=== PATIENT | female | born 1980 | race Caucasian/White ===

== ENCOUNTER 2019-12-08 10:23 | Observation (INO) | payer MEDICAID, SELFPAY ==
[~2019-12-08] VITALS: Ht 160 cm; Wt 90.7 kg
[~2019-12-08 10:23] MED LIST: ACET-2619 PO; FERR325E14 PO; PREN-385 PO
[2019-12-08 11:19] VITALS: BP 127/65
--- NOTE | 2019-12-08 15:04 | NUR ---
PATIENT HAS BEEN SCREENED AND CATEGORIZED LOW NUTRITION RISK. PATIENT WILL BE SEEN WITHIN 7 DAYS OF ADMISSION. 12/14/[address]
== END 2019-12-08 14:25 | disposition home or self-care (01) ==
LOC: MLD 10:23
PROVIDERS: ADMIT Obstetrics & Gynecology; ATTEND Obstetrics & Gynecology
DX: O62.9 Abnormality of forces of labor, unspecified (principal); Z20.828 Contact with and (suspected) exposure to other viral communicable diseases; O09.523 Supervision of elderly multigravida, third trimester; Z3A.38 38 weeks gestation of pregnancy
CPT/HCPCS: 59025; 76805; 81000; 87426; G0378; Q0092

== ENCOUNTER 2019-12-11 17:14 | Inpatient (IN) | payer MEDICAID, SELFPAY ==
[~2019-12-11] VITALS: Ht 162.6 cm; Wt 90.7 kg
[~2019-12-11 17:14] MED LIST changes: -ACET-2619 PO; -FERR325E14 PO
[2019-12-11] MEDS ORDERED: CARBOPROST 250 MCG/ML AMP IM PRN (18:10)
[2019-12-11] MEDS ORDERED: LACTATED RINGERS 1,000 ML IV SCH (18:10)
[2019-12-11] MEDS ORDERED: METHYLERGONOVINE 0.2 MG/ML AMP IM PRN (18:10)
[2019-12-11] MEDS ORDERED: MISOPROSTOL 25 MCG TAB VG SCH (18:10)
[2019-12-11] MEDS ORDERED: PROMETHAZINE 25 MG/ML VIAL IVP PRN (18:10)
[2019-12-11] MEDS ORDERED: OXYTOCIN 10 UNITS/ML VIAL IM SCH (18:10)
[2019-12-11] MEDS ORDERED: AMPICILLIN 2,000 MG VIAL ONE (18:38)
[2019-12-11 18:42] LABS: BASOPHILS % (AUTO) 0.5 % (0.0-2.0); EOSINOPHILS % (AUTO) 0.5 % (0.0-4.0); HEMATOCRIT 37.5 % (36-48); HEMOGLOBIN 13.3 g/dL (12.0-16.0); LYMPHOCYTES # (AUTO) 1.7 K/uL (2.5-16.5); LYMPHOCYTES % (AUTO) 21.1 % (20.5-51.1); MEAN CORPUSCULAR HEMOGLOBIN 35 pg (27-31); MEAN CORPUSCULAR HGB CONC 36 g/dL (33-37); MEAN CORPUSCULAR VOLUME 98.8 fL (80-94); MONOCYTES # (AUTO) 0.6 K/uL (0.8-1.0); MONOCYTES % (AUTO) 7.8 % (1.7-9.3); NEUTROPHILS # (AUTO) 5.7 K/uL (1.8-7.7); NEUTROPHILS % (AUTO) 70.1 % (42.2-75.2); PLATELET COUNT (AUTO) 204 K/uL (140-450); RED CELL DISTRIBUTION WIDTH 14.1 % (11.6-13.7); WHITE BLOOD COUNT (AUTO) 8.1 K/uL (4.8-10.8)
[2019-12-11 18:43] LABS: APPEARANCE,URINE HAZY (CLEAR); BILIRUBIN,URINE NEGATIVE (NEGATIVE); BLOOD, URINE NEGATIVE (NEGATIVE); COLOR,URINE YELLOW (YELLOW); LEUKOCYTE ESTERASE ,URINE NEGATIVE (NEGATIVE); NITRITE, URINE NEGATIVE (NEGATIVE); PH,URINE 5.5 (5.0-9.0); UGLUCOSE NEGATIVE (NEGATIVE)
[2019-12-11 18:57] LABS: ALBUMIN 2.8 g/dL (3.4-5.0); ANION GAP 16.5 (8-16); CARBON DIOXIDE 20.2 mmol/L (21-32); CREATININE 0.6 mg/dL (0.6-1.3); POTASSIUM 3.7 mmol/L (3.5-5.1); TOTAL BILIRUBIN 0.4 mg/dL (0.0-1.0)
[2019-12-11] MEDS ORDERED: AMPICILLIN 2,000 MG in NACL 0.9% MINI-BAG PLUS 100 ML IV SCH (19:00)
[2019-12-11] MEDS ORDERED: AMPICILLIN 1,000 MG VIAL ONE (23:00)
[2019-12-11] MEDS: AMPICILLIN 1,000 MG in NACL 0.9% MINI-BAG PLUS 50 ML IV SCH (23:04)
[2019-12-12] MEDS ORDERED: ROPIVACAINE 0.2%/NS PREMIX 200 ML EPI ONE (01:39)
[2019-12-12] MEDS ORDERED: AMPICILLIN 1,000 MG VIAL ONE ×3 (03:03→11:35)
[2019-12-12] MEDS: AMPICILLIN 1,000 MG in NACL 0.9% MINI-BAG PLUS 50 ML IV SCH ×3 (03:08→11:48)
[2019-12-12] MEDS ORDERED: OXYTOCIN 20 UNITS/LR PREMIX 1,000 ML IV ONE (04:36)
[2019-12-12] MEDS ORDERED: LIDOCAINE 1% 500 MG/50 ML VIAL ONE (12:26)
[2019-12-12] MEDS ORDERED: ACETAMINOPHEN 325 MG TAB PO PRN (14:15)
[2019-12-12] MEDS ORDERED: MEASLES, MUMPS, AND RUBELLA 1 VIAL SQVAC PRN (14:15)
[2019-12-12] MEDS ORDERED: OXYTOCIN 20 UNITS in LACTATED RINGERS 1,000 ML IV SCH (14:15)
[2019-12-12] MEDS: IBUPROFEN 600 MG TAB PO PRN (17:37)
[2019-12-13] MEDS: IBUPROFEN 600 MG TAB PO PRN ×2 (01:10→11:42)
[2019-12-13] MEDS ORDERED: FLU VACCINE QS2020-21 0.5 ML SYR IMVAC PRN (04:50)
--- NOTE | 2019-12-13 06:25 | NUR ---
PATIENT HAS BEEN SCREENED AND CATEGORIZED LOW NUTRITION RISK. PATIENT WILL BE SEEN WITHIN 7 DAYS OF ADMISSION. 12/18/19 DIMPLE MACDONALD MS, RDN
[2019-12-13 08:06] LABS: BASOPHILS % (AUTO) 0.3 % (0.0-2.0); EOSINOPHILS # (AUTO) 0.1 K/uL (0-0.4); EOSINOPHILS % (AUTO) 0.6 % (0.0-4.0); HEMATOCRIT 34.9 % (36-48); HEMOGLOBIN 12.2 g/dL (12.0-16.0); LYMPHOCYTES # (AUTO) 2.1 K/uL (2.5-16.5); LYMPHOCYTES % (AUTO) 20.5 % (20.5-51.1); MEAN CORPUSCULAR HEMOGLOBIN 35 pg (27-31); MEAN CORPUSCULAR HGB CONC 35 g/dL (33-37); MEAN CORPUSCULAR VOLUME 100.1 fL (80-94); MONOCYTES # (AUTO) 0.9 K/uL (0.8-1.0); MONOCYTES % (AUTO) 8.9 % (1.7-9.3); NEUTROPHILS # (AUTO) 7.1 K/uL (1.8-7.7); NEUTROPHILS % (AUTO) 69.7 % (42.2-75.2); PLATELET COUNT (AUTO) 175 K/uL (140-450); RED BLOOD CELL COUNT(AUTO) 3.48 MIL/uL (4.20-5.40); RED CELL DISTRIBUTION WIDTH 14.2 % (11.6-13.7); WHITE BLOOD COUNT (AUTO) 10.2 K/uL (4.8-10.8)
[2019-12-13] MEDS: bisacodyL 5 MG TABEC PO PRN (11:43)
[2019-12-13] MEDS: DOCUSATE SODIUM 100 MG GELCAP PO PRN (11:43)
[2019-12-14] MEDS: IBUPROFEN 600 MG TAB PO PRN (00:26)
[2019-12-14] MEDS: DOCUSATE SODIUM 100 MG GELCAP PO PRN (08:44)
[2019-12-14] MEDS: bisacodyL 5 MG TABEC PO PRN (08:44)
[2019-12-14] MEDS ORDERED: ACET-9800 PO (10:53)
[2019-12-14] MEDS ORDERED: FERR-18 PO (10:54)
== END 2019-12-14 15:00 | disposition home or self-care (01) | DRG 560 ==
LOC: MLD 17:14 → MFCC 12-12 15:50
PROVIDERS: ADMIT Obstetrics & Gynecology; ATTEND Obstetrics & Gynecology
PROC: 10E0XZZ Delivery of Products of Conception, External Approach (ICD-10-PCS; principal; 2019-12-12)
PROC: 3E0R3BZ Introduction of Anesthetic Agent into Spinal Canal, Percutaneous Approach (ICD-10-PCS; 2019-12-12)
PROC: 00HU33Z Insertion of Infusion Device into Spinal Canal, Percutaneous Approach (ICD-10-PCS; 2019-12-12)
PROC: 10907ZC Drainage of Amniotic Fluid, Therapeutic from Products of Conception, Via Natural or Artificial Opening (ICD-10-PCS; 2019-12-12)
PROC: 3E033VJ Introduction of Other Hormone into Peripheral Vein, Percutaneous Approach (ICD-10-PCS; 2019-12-12)
PROC: 3E0P7VZ Introduction of Hormone into Female Reproductive, Via Natural or Artificial Opening (ICD-10-PCS; 2019-12-12)
PROC: 3E0234Z Introduction of Serum, Toxoid and Vaccine into Muscle, Percutaneous Approach (ICD-10-PCS; 2019-12-12)
DX: O99.824 Streptococcus B carrier state complicating childbirth (principal); Z3A.39 39 weeks gestation of pregnancy; Z37.0 Single live birth; Z23 Encounter for immunization
CPT/HCPCS: 36415; 51702; 59200; 59409; 80053; 81003; 85025; 86592; 86886; 86900; 86901; 90715; J0290; J2001; J2590; J2795; J7120